=== PATIENT | female | born 1960 | race Caucasian/White ===

== ENCOUNTER → 2024-06-15 17:10 | Outpatient (REF) | payer OTHER, SELFPAY | LOC: WDC 17:10 | PROVIDERS: ATTENDING PHYSICIAN Physician Assistant Medical | DX: Z12.31 Encounter for screening mammogram for malignant neoplasm of breast (principal) | CPT/HCPCS: 77063; 77067 ==

== ENCOUNTER → 2025-06-18 17:08 | Outpatient (REF) | payer OTHER, SELFPAY | LOC: WDC 17:08 | PROVIDERS: ATTENDING PHYSICIAN Physician Assistant Medical | DX: Z12.31 Encounter for screening mammogram for malignant neoplasm of breast (principal) | CPT/HCPCS: 77063; 77067 ==